=== PATIENT | female | born 1970 | race Native Hawaiian/Other Pacific Islander ===

== ENCOUNTER 2018-06-15 20:02 | Emergency (ER) | payer OTHER ==
[2018-06-15 21:50] VITALS: BP 154/88; TEMP 98.8
== END 2018-06-15 21:50 | disposition home or self-care (01) ==
LOC: ED 20:02
DX: N30.91 Cystitis, unspecified with hematuria (principal); M54.5 Low back pain
CPT/HCPCS: 36415; 81000; 87088; 99283; J1885